=== PATIENT | male | born 1980 ===

== ENCOUNTER 2017-05-02 04:07 | Emergency (ER) | payer MEDICAID, OTHER ==
[2017-05-02] MEDS ORDERED: Sodium Chloride 0.9% 1,000 ML IV ONE (04:30)
[2017-05-02 04:53] LABS: BASO # 0.1 K/uL (0.0-0.2); BASO % 0.8 % (0.0-2.0); EOS # 0.2 K/uL (0.0-0.7); EOS % 1.8 % (0.0-4.0); HEMOGLOBIN 15.6 g/dL (12.0-18.0); LYMPH # 3.7 K/uL (1.0-4.3); LYMPH % 41.7 % (20.0-40.0); MEAN CELL VOLUME 90.3 fL (80.0-94.0); MEAN CORPUSCULAR HEMOGLOBIN 32.1 pg (27.0-31.0); MEAN CORPUSCULAR HGB CONC 35.6 g/dL (33.0-37.0); MEAN PLATELET VOLUME 7.5 fL (7.2-11.7); MONO # 0.6 K/uL (0.0-0.8); MONO % 6.2 % (0.0-10.0); NEUT # 4.4 K/uL (1.8-7.0); NEUT % 49.5 % (50.0-75.0); RBC 4.84 Mil/uL (4.40-5.90); RED CELL DISTRIBUTION WIDTH 13.4 % (11.5-14.5); WHITE BLOOD COUNT 8.9 K/uL (4.8-10.8)
[2017-05-02 05:07] LABS: ALBUMIN 4.3 g/dL (3.5-5.0)
[2017-05-02 05:10] LABS: ALB/GLOB RATIO 1.3 (1.0-2.1); ALT/SGPT 54 U/L (21-72); AST/SGOT 38 U/L (17-59); BLOOD UREA NITROGEN 8 mg/dL (9-20); GFR AFRICAN-AMERICAN > 60; GFR NON-AFRICAN AMERICAN > 60
[2017-05-02 05:11] LABS: CALCIUM 8.9 mg/dl (8.6-10.4); LIPASE 227 U/L (23-300)
[2017-05-02] MEDS ORDERED: Potassium Chloride 20 mEq ER Tab PO STA (05:36)
[2017-05-02] MEDS ORDERED: Potassium Chloride 20 mEq ER Tab PO ONE (05:40)
--- NOTE | 2017-05-02 05:53 | C.PDOC ---
History Of Present Illness 36 y/o male presents to ED with complaints of abdominal pain that started a few hours ago associated with nausea. Patient states he has been binge drinking and is requesting detox. Patient denies fever, vomiting, diarrhea or any other complaints at this time. (+) h/o diarrhea few days ago which improved. Time Seen by Provider: 05/02/17 04:17 Chief Complaint (Nursing): Abdominal Pain History Per: Patient History/Exam Limitations: no limitations Onset/Duration Of Symptoms: Hrs Current Symptoms Are (Timing): Still Present Quality Of Discomfort: "Pain" Associated Symptoms: Nausea. denies: Vomiting Past Medical History Reviewed: Historical Data, Nursing Documentation, Vital Signs Vital Signs: Last Vital Signs Temp 98 F 05/02/17 06:33 Pulse 84 05/02/17 06:33 Resp 16 05/02/17 06:33 BP 123/76 05/02/17 06:33 Pulse Ox 100 05/02/17 06:33 - Medical History PMH: Depression Family History: States: No Known Family Hx - Social History Hx Alcohol Use: Yes Hx Substance Use: Yes - Immunization History Hx Tetanus Toxoid Vaccination: No Hx Influenza Vaccination: No Hx Pneumococcal Vaccination: No Review Of Systems Except As Marked, All Systems Reviewed And Found Negative. Constitutional: Negative for: Fever, Chills Gastrointestinal: Positive for: Nausea, Abdominal Pain. Negative for: Vomiting Physical Exam - Physical Exam Appears: Non-toxic, No Acute Distress Skin: Normal Color, Warm Head: Atraumatic, Normacephalic Eye(s): bilateral: Normal Inspection, EOMI Nose: Normal Neck: Normal, Normal ROM, Supple Chest: Symmetrical Cardiovascular: Rhythm Regular, No Murmur Respiratory: Normal Breath Sounds, No Rales, No Rhonchi, No Wheezing Gastrointestinal/Abdominal: Soft, Tenderness (Upper Quadrant), No Guarding, No Rebound Back: No CVA Tenderness, No Vertebral Tenderness Neurological/Psych: Oriented x3, Normal Speech, Other (No focal deficits) ED Course And Treatment - Laboratory Results Result Diagrams: 05/02/17 04:48 05/02/17 04:48 O2 Sat by Pulse Oximetry: 97 (RA) Pulse Ox Interpretation: Normal Progress Note: 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 Patient was given outpatient information for detox centers Disposition - Disposition Disposition Time: 07:00 Condition: STABLE - Clinical Impression Clinical Impression: Abdominal pain, Alcohol abuse - Scribe Statement The provider has reviewed the documentation as recorded by the Amarilisibe Tee Fsiher All medical record entries made by the Amarilisibe were at my direction and personally dictated by me. I have reviewed the chart and agree that the record accurately reflects my personal performance of the history, physical exam, medical decision making, and the department course for this patient. I have also personally directed, reviewed, and agree with the discharge instructions and disposition. Physician Patient Turnover Patient Signed Over To: Shavon Angel Handoff Comments: pending CT and re-evaluation
[2017-05-02 06:33] LABS: URINE BILIRUBIN NEGATIVE (NEGATIVE); URINE BLOOD NEGATIVE (NEGATIVE); URINE CLARITY Clear (Clear); URINE COLOR Yellow (YELLOW); URINE GLUCOSE (UA) NORMAL (Normal); URINE LEUKOCYTE ESTERASE NEG Leu/uL (Negative); URINE NITRATE NEGATIVE (NEGATIVE); URINE PROTEIN NEGATIVE (NEGATIVE); URINE UROBILINOGEN NORMAL mg/dL (0.2-1.0)
[2017-05-02 06:34] VITALS: TEMP 98
[2017-05-02] MEDS ORDERED: Iodixanol 320 MG/ML 100 ML BOTTLE IV ONE (06:40)
[2017-05-02 08:58] VITALS: BP 116/79; PULSE 71; RESP 188; O2SAT 99
--- NOTE | 2017-05-02 10:50 | CT ---
PROCEDURE: CT abdomen pelvis dated 05/02/2017 HISTORY: Abdominal pain COMPARISON: None. TECHNIQUE: Contiguous axial images of the abdomen and pelvis performed in standard fashion following intravenous injection of approximately 100 cc Visipaque 320 contrast material. Coronal and Sagittal reformats generated. Radiation dose: Total exam DLP = Not available This CT exam was performed using one or more of the following dose reduction techniques: Automated exposure control, adjustment of the mA and/or kV according to patient size, and/or use of iterative reconstruction technique. FINDINGS: LOWER THORAX: Lung bases clear. LIVER: Liver is upper normal in size measuring approximately 18 cm in CC dimension. Mild fatty hepatic infiltration. No obvious hepatic mass collection or calcification. No obvious hepatic mass collection or calcification. Portal and splenic veins are opacified GALLBLADDER AND BILE DUCTS: Gallbladder appears incompletely distended which may account for slight prominent gallbladder wall. No obvious intraluminal gallbladder calculi. . PANCREAS: Pancreas appears grossly unremarkable. SPLEEN: The spleen exhibits relatively normal size without mass collection or calcification. ADRENALS: No adrenal lesions. KIDNEYS AND URETERS: There is a punctate calcification measuring approximately 1.5 mm within the upper left kidney which. No evidence of hydronephrosis. BLADDER: Urinary bladder is incompletely distended which may account for thick-walled appearance. Muscular hypertrophy may contribute. Rule out cystitis. REPRODUCTIVE: Prostate gland measures approximately 3.7 cm in transverse dimension. Prostatic calcifications are present. APPENDIX: Normal-appearing appendix of best seen on coronal image number [id number]. No periappendiceal inflammatory changes BOWEL: Evaluation of the bowel is limited due to the lack of oral contrast material. The stomach is incompletely distended which may account for slight thick-walled appearance. The possibility of gastritis not excluded. Visualized loops of small bowel exhibit normal contour and caliber. No evidence of acute mechanical small bowel obstruction. Stool and air seen throughout colon. No evidence of abnormal mural wall thickening. PERITONEUM: Gross free intraperitoneal air. No free or loculated fluid collections. LYMPH NODES: No significant/bulky adenopathy. VASCULATURE: The abdominal aorta and iliac arteries demonstrate no evidence of aneurysm. BONES: Osseous structures appear intact. There are no acute compression fractures no retropulsed fragments. OTHER FINDINGS: None. IMPRESSION: Liver is upper limits of normal in size exhibiting mild fatty infiltration Punctate nonobstructing calcification upper pole left kidney. Urinary bladder is incompletely distended which presumably in part accounts for thick-walled appearance ; muscular hypertrophy may contribute. Possibility of cystitis not excluded.
== END 2017-05-02 09:17 | disposition home or self-care (01) ==
LOC: C.ER 04:07
DX: R10.84 Generalized abdominal pain (principal); F10.10 Alcohol abuse, uncomplicated; Y90.9 Presence of alcohol in blood, level not specified
CPT/HCPCS: 74177; 80053; 81001; 83690; 85025; 96374; 96375; 99285; C9113; J1885; J2270; J2405; J7040; Q9967